=== PATIENT | female | born 1945 | race Caucasian/White ===

== ENCOUNTER → 2016-11-05 | Outpatient (CLI) | payer MEDICARE, OTHER ==
[~2016-11-05] MED LIST: ALBUTEROL2.5 MG/NEB INH; ALLEGRA-D 12 HO1 TE1 PO; ANORO ELLIPTA1 POW IH; ASPIRIN 81MG TA81 MG PO; DELTASONE20 MG PO; DIFLUCAN100 M1 PO; DULCOLAX 1010 MG/SUP PR; FLEXERIL10 MG PO; HYOSCYAMINE0.125 MG PO; LEVAQUIN750 MG PO; LOTREL1 CAP PO; MUCINEX1200 MG PO; NEXIUM40 MG PO; PEG 335017 GM/Dose; PROVENTIL0.09 MG/A1 IH; RESTASIS 30 ML30 ML OP; SPIRIVA HA1 PUFF/INH IH; SPIRIVA18 MCG IH; THEO DUR PO; ULTRAM50 MG PO; [UNRECOGNIZED DRUG - SUPPLY]
== END ==
LOC: RT 10-23 13:00 → RAD 10-23 14:45 → RT 08:45 → RAD 08:45 → RT 09:50
DX: J44.9 Chronic obstructive pulmonary disease, unspecified (principal)

== ENCOUNTER → 2017-07-05 | Outpatient (CLI) | payer MEDICARE, OTHER ==
--- NOTE | 2017-07-05 15:18 | RADIOLOGY REPORT PS360 ---
ELBOW-RT-3 VIEWS HISTORY: RT ELBOW PAIN ORDERING PHYSICIAN: Debbie Mcneal APRN PATIENT AGE: 71 years COMPARISON: None FINDINGS: BONY STRUCTURES: No fracture or dislocation. No lytic or blastic change. Normal mineralization. SOFT TISSUES: Unremarkable. No radio opaque foreign bodies. No displaced fat pad. JOINT SPACE: Well-preserved. No significant arthritic changes evident. IMPRESSION: Negative elbow.
--- NOTE | 2017-07-05 22:48 | RADIOLOGY REPORT PS360 ---
US EXTREMITIES RT LIMITED CLINICAL INDICATION: RT ELBOW MASS ORDERING PHYSICIAN: Debbie Mcneal APRN PATIENT AGE: 71 years COMPARISON: None FINDINGS: Limited images are obtained of the elbow showing a small focal area of increased echogenicity at the area of the palpable abnormality. This measures approximately 3 mm consistent with a small area of calcification. IMPRESSION: There is a 3 mm area of calcification corresponding to the area of palpable abnormality. This is of questionable clinical significance. Consider plain films for further evaluation
== END ==
LOC: RAD 14:52
DX: M25.521 Pain in right elbow (principal)

== ENCOUNTER → 2017-09-16 | Outpatient (CLI) | payer MEDICARE, OTHER | LOC: RT 09:43 | DX: J44.9 Chronic obstructive pulmonary disease, unspecified (principal) ==